=== PATIENT | female | born 1955 | race Caucasian/White ===

== ENCOUNTER → 2016-02-27 | Outpatient (CLI) | payer OTHER ==
[~2016-02-27] MED LIST: ADVAIR 250/501 DISK IH; ADVIL200 MG PO; ALBUTEROL INHALER; AMOXICILLIN875 MG PO; ASMANEX TW200 MICRO1 IH; ASPIR-LOW81 MG PO; Asmanex Twisthaler 1 IH; BENADRYL25 MG PO; BENTYL20 MG PO; CARDIZEM CD,CA180 MG PO; CARDIZEM CD180 MG PO; CIPRO500 MG PO; CLARITIN10 MG PO; DESYREL100 MG PO; ELAVIL10 MG PO; EPIPEN ADU0.3 MG/0.3 IM; ERGOCALCIF50000 UNIT PO; Ecotrin PO; FLONASE16 G1 BOTH NARES; Feosol PO; LEVAQUIN500 MG PO; LEVAQUIN750 MG PO; LEVO-T75 MCG PO; LEVOFLOXACIN750 MG PO; LEVOTHYROXINE100 MCG PO; LO-DOSE ASPIRIN81 M2 PO; Levaquin PO; MONTELUKAST SOD10 MG PO; Medrol Dosepak PO; NAPROSYN500 MG PO; NORCO 5/3251 TABLET PO; PREDNISONE10 MG PO; PREDNISONE20 MG PO; PREDNISONE50 MG PO; PROAIR HFA8.5 GM IH; PROCARDIA20 MG PO; PROVENTIL HFA6.7 GM IH; PROVENTIL,2.5 MG/0.5 IH; PROVENTIL2.5 MG/3 M IH; PriLOSEC PO; Procardia XL,Adalat PO; SINGULAIR10 MG PO; SPIRIVA1 INHALATI IH; SYMBICORT60 INHALA1 IH; SYMBICORT60 INHALAT IH; SYNTHROID50 MCG PO; SYNTHROID75 MCG PO; TAMIFLU75 MG PO; TOPAMAX25 MG PO; TYLENOL REGULA325 MG PO; ULTRACET1 TABLET PO; VENTOLIN HFA18 GM IH; VENTOLIN17 GM IH; XANAX0.5 MG PO; ZITHROMAX Z-PA250 MG PO; ZITHROMAX250 MG PO; Zithromax PO; predniSONE PO
== END | disposition home or self-care (01) ==
LOC: NUC 10:14
DX: I25.9 Chronic ischemic heart disease, unspecified (principal); R07.9 Chest pain, unspecified; R94.31 Abnormal electrocardiogram [ECG] [EKG]
CPT/HCPCS: 78452; 93017; A9500; J2785

== ENCOUNTER 2016-03-06 08:29 | Day surgery (SDC) | payer OTHER ==
[~2016-03-06] VITALS: Ht 147.3 cm; Wt 99.8 kg
[~2016-03-06 08:29] MED LIST changes: +TUMS500 MG PO
== END 2016-03-06 14:30 | disposition home or self-care (01) ==
LOC: CATH 08:29
DX: R94.39 Abnormal result of other cardiovascular function study (principal); R07.2 Precordial pain; R00.2 Palpitations; R06.02 Shortness of breath; E66.01 Morbid (severe) obesity due to excess calories; Z68.42 Body mass index [BMI] 45.0-49.9, adult; K21.9 Gastro-esophageal reflux disease without esophagitis; J45.909 Unspecified asthma, uncomplicated; Z79.82 Long term (current) use of aspirin; Z88.8 Allergy status to other drugs, medicaments and biological substances
CPT/HCPCS: C1769; C1887; J1200; J1644; J2250; J3010; J7050

== ENCOUNTER 2016-03-11 23:20 | Observation (INO) | payer OTHER ==
[~2016-03-11] VITALS: Ht 149.9 cm; Wt 110.0 kg
[2016-03-12 00:25] LABS: HEMATOCRIT 35.4 % (36.0-46.0); MCH 31.1 PG (29.0-34.0); MCHC 33.1 G/DL (30.0-36.0); MCV 94.1 FL (83-99); MEAN PLAT.VOLUME 9.7 uM^3 (9.5-12.4); PLATELET COUNT 214 K/uL (156-360); RBC DIS.WIDTH-CV 17.7 % (11.8-14.6); RBC DIS.WIDTH-SD 58.3 % (39-53); RED BLOOD COUNT 3.76 M/uL (3.80-5.20); WHITE BLOOD COUNT 4.6 K/uL (4.1-10.2)
[2016-03-12 00:29] LABS: CHLORIDE 113 mEq/L (99-109); SODIUM 145 mEq/L (136-147)
[2016-03-12 00:30] LABS: POTASSIUM 3.2 mEq/L (3.7-5.4)
[2016-03-12 00:31] LABS: GLUCOSE 94 mg/dL (70-99)
[2016-03-12 00:33] LABS: ANION GAP 11 MEQ/L (2-14)
[2016-03-12 00:35] LABS: GFR ESTIMATE (CALCULATED) > 59 mL/min/
[2016-03-12 00:36] LABS: UREA NITROGEN (BUN) 13 mg/dL (9-23)
[2016-03-12 00:38] LABS: TROP-I INTERPRETATION NEGATIVE; TROPONIN-I < 0.01 ng/mL (0.0-0.30)
[2016-03-12] MEDS ORDERED: EYE ALLERGY REL15 ML BOTH EYES (01:13)
[2016-03-12] MEDS ORDERED: ALBUTEROL2.5 MG/3 M IH (01:13)
[2016-03-12 05:22] VITALS: BP 136/65
[2016-03-12 05:35] LABS: HDL CHOLESTEROL 38 MG/DL (Desirable>=50); LDL CHOLESTEROL 115 mg/dL (Desirable<100); NON-HDL CHOLESTEROL 140 mg/dL (Desirable<160); TOTAL CHOLESTEROL 178 mg/dL (Desirable<200); TRIGLYCERIDES 127 MG/DL (Normal: <150)
[2016-03-12 06:53] LABS: Estimated Average Glucose 114 mg/dL (70-123); HEMOGLOBIN A1c (GLYCOHEMOGLOB) 5.6 % HGB (Below 5.7)
[2016-03-12 09:30] VITALS: BP 112/57
[2016-03-12 11:21] VITALS: BP 125/61
[2016-03-12 16:16] VITALS: BP 132/69
== END 2016-03-12 18:40 | disposition home or self-care (01) ==
LOC: EME 23:20 → EDOF 03-12 03:23 → 5WEST 03-12 04:38
DX: R20.8 Other disturbances of skin sensation (principal); I10 Essential (primary) hypertension; E87.6 Hypokalemia; E03.9 Hypothyroidism, unspecified; E78.5 Hyperlipidemia, unspecified; J45.909 Unspecified asthma, uncomplicated; D50.9 Iron deficiency anemia, unspecified; K21.9 Gastro-esophageal reflux disease without esophagitis; Z82.0 Family history of epilepsy and other diseases of the nervous system; Z83.3 Family history of diabetes mellitus
CPT/HCPCS: 70450; 70551; 71020; 80048; 80061; 83036; 84443; 84484; 85027; 93005; 94640; 99202; 99281; 99285; G0378

== ENCOUNTER 2016-08-27 07:22 | Emergency (ER) | payer OTHER ==
[~2016-08-27] VITALS: Ht 121.9 cm; Wt 105.0 kg
[~2016-08-27 07:22] MED LIST changes: +ALBUTEROL2.5 MG/3 M IH; +EYE ALLERGY REL15 ML BOTH EYES
[2016-08-27 08:28] LABS: HEMATOCRIT 34.9 % (36.0-46.0); MCH 28.4 PG (29.0-34.0); MCHC 32.1 G/DL (30.0-36.0); MCV 88.4 FL (83-99); MEAN PLAT.VOLUME 9.5 uM^3 (9.5-12.4); PLATELET COUNT 201 K/uL (156-360); RBC DIS.WIDTH-CV 16.6 % (11.8-14.6); RBC DIS.WIDTH-SD 53.9 % (39-53); RED BLOOD COUNT 3.95 M/uL (3.80-5.20); WHITE BLOOD COUNT 4.8 K/uL (4.1-10.2)
[2016-08-27 09:12] LABS: CHLORIDE 112 mEq/L (99-109); POTASSIUM 3.8 mEq/L (3.7-5.4); SODIUM 146 mEq/L (136-147)
[2016-08-27 09:14] LABS: GLUCOSE 101 mg/dL (70-99)
[2016-08-27 09:15] LABS: ANION GAP 10 MEQ/L (2-14)
[2016-08-27 09:17] LABS: GFR ESTIMATE (CALCULATED) > 59 mL/min/
[2016-08-27 09:18] LABS: UREA NITROGEN (BUN) 11 mg/dL (9-23)
[2016-08-27 09:27] LABS: ERTH.SED.RATE 20 MM/HR (0-30)
[2016-08-27] MEDS ORDERED: COMPAZINE10 MG PO (10:08)
[2016-08-27 10:22] VITALS: BP 153/88
== END 2016-08-27 10:48 | disposition home or self-care (01) ==
LOC: EME → EDBD 07:22 → EME 10:48
PROVIDERS: Emergency Medicine
DX: G43.909 Migraine, unspecified, not intractable, without status migrainosus (principal); J44.9 Chronic obstructive pulmonary disease, unspecified; I10 Essential (primary) hypertension; K21.9 Gastro-esophageal reflux disease without esophagitis; Z79.82 Long term (current) use of aspirin
CPT/HCPCS: 80048; 85027; 85651; 86140; 99281; 99285; J0780; J1200; J1885; J7030

== ENCOUNTER 2016-09-28 02:03 | Emergency (ER) | payer OTHER ==
[~2016-09-28] VITALS: Ht 147.3 cm; Wt 102.6 kg
[~2016-09-28 02:03] MED LIST changes: +COMPAZINE10 MG PO
[2016-09-28] MEDS ORDERED: NAPROSYN500 MG PO (03:42)
[2016-09-28] MEDS ORDERED: FLEXERIL10 MG PO (03:42)
[2016-09-28 04:15] VITALS: BP 163/98
== END 2016-09-28 04:15 | disposition home or self-care (01) ==
LOC: EME 02:03
DX: M25.561 Pain in right knee (principal); Z91.81 History of falling; M17.12 Unilateral primary osteoarthritis, left knee; Z79.82 Long term (current) use of aspirin
CPT/HCPCS: 73564; 99281; 99283

== ENCOUNTER 2016-10-26 02:18 | Emergency (ER) | payer OTHER ==
[~2016-10-26] VITALS: Ht 147.3 cm; Wt 107.2 kg
[~2016-10-26 02:18] MED LIST changes: +FLEXERIL10 MG PO
[2016-10-26 03:18] LABS: HEMATOCRIT 36.5 % (36.0-46.0); MCHC 32.9 G/DL (30.0-36.0); MCV 91.3 FL (83-99); MEAN PLAT.VOLUME 9.4 uM^3 (9.5-12.4); PLATELET COUNT 209 K/uL (156-360); RBC DIS.WIDTH-CV 16.3 % (11.8-14.6); RBC DIS.WIDTH-SD 54.3 % (39-53); WHITE BLOOD COUNT 4.6 K/uL (4.1-10.2)
[2016-10-26 03:33] LABS: CHLORIDE 111 mEq/L (99-109); POTASSIUM 3.5 mEq/L (3.7-5.4); SODIUM 145 mEq/L (136-147)
[2016-10-26 03:35] LABS: GLUCOSE 125 mg/dL (70-99)
[2016-10-26 03:36] LABS: ANION GAP 13 MEQ/L (2-14)
[2016-10-26 03:37] LABS: TOTAL BILIRUBIN 0.2 mg/dL (0.0-1.0)
[2016-10-26 03:38] LABS: ALKALINE PHOSPHATASE 125 IU/L (3-129)
[2016-10-26 03:39] LABS: GFR ESTIMATE (CALCULATED) > 59 mL/min/
[2016-10-26 03:40] LABS: UREA NITROGEN (BUN) 13 mg/dL (9-23)
[2016-10-26 03:42] LABS: LIPASE 32 U/L (1.0-51.0)
[2016-10-26 03:47] LABS: TROP-I INTERPRETATION NEGATIVE; TROPONIN-I 0.01 ng/mL (0.0-0.30)
[2016-10-26] MEDS ORDERED: PREDNISONE50 MG PO (04:35)
[2016-10-26 05:52] VITALS: BP 153/82
== END 2016-10-26 05:53 | disposition home or self-care (01) ==
LOC: EME → EDBD 02:18 → EME 02:18
PROVIDERS: Emergency Medicine
DX: J44.1 Chronic obstructive pulmonary disease with (acute) exacerbation (principal); E07.89 Other specified disorders of thyroid; I10 Essential (primary) hypertension; K21.9 Gastro-esophageal reflux disease without esophagitis; E06.3 Autoimmune thyroiditis; Z96.612 Presence of left artificial shoulder joint; Z79.82 Long term (current) use of aspirin
CPT/HCPCS: 71020; 71275; 80053; 83690; 84484; 85027; 85379; 93005; 94640; 94640 76; 99281; 99285; J2930

== ENCOUNTER 2016-11-01 01:58 | Emergency (ER) | payer OTHER ==
[~2016-11-01] VITALS: Ht 147.3 cm; Wt 100.1 kg
[2016-11-01 05:45] LABS: EOSINOPHIL (%) 0.3 % (0-5); HEMATOCRIT 40.5 % (36.0-46.0); IMMATURE GRANULOCYTE (%) 1.1 % (0.0-0.7); IMMATURE GRANULOCYTE COUNT 0.1 K/uL; INSTRUMENT ABS NEUTROPHIL CT 4.7 K/uL; LYMPHOCYTE COUNT 1.8 K/uL (1.0-2.8); MCH 29.9 PG (29.0-34.0); MCHC 33.8 G/DL (30.0-36.0); MCV 88.4 FL (83-99); MEAN PLAT.VOLUME 9.3 uM^3 (9.5-12.4); MONOCYTE COUNT 0.6 K/uL (0-0.8); NEUTROPHIL (%) 65.3 % (45-76); NEUTROPHIL COUNT 4.7 K/uL (1.8-6.4); PLATELET COUNT 258 K/uL (156-360); RBC DIS.WIDTH-CV 15.9 % (11.8-14.6); RBC DIS.WIDTH-SD 51.3 % (39-53); RED BLOOD COUNT 4.58 M/uL (3.80-5.20); WHITE BLOOD COUNT 7.2 K/uL (4.1-10.2)
[2016-11-01 05:56] LABS: CHLORIDE 106 mEq/L (99-109); SODIUM 140 mEq/L (136-147)
[2016-11-01 05:58] LABS: GLUCOSE 95 mg/dL (70-99)
[2016-11-01 06:00] LABS: ANION GAP 15 MEQ/L (2-14)
[2016-11-01 06:02] LABS: GFR ESTIMATE (CALCULATED) > 59 mL/min/
[2016-11-01 06:03] LABS: UREA NITROGEN (BUN) 12 mg/dL (9-23)
[2016-11-01 06:10] LABS: TROP-I INTERPRETATION NEGATIVE; TROPONIN-I < 0.01 ng/mL (0.0-0.30)
[2016-11-01] MEDS ORDERED: LEVAQUIN500 MG PO (07:02)
[2016-11-01 07:33] VITALS: BP 125/72
== END 2016-11-01 07:40 | disposition home or self-care (01) ==
LOC: EME → EDBD 01:58 → EME 01:58
PROVIDERS: Emergency Medicine
DX: J44.0 Chronic obstructive pulmonary disease with (acute) lower respiratory infection (principal); J20.9 Acute bronchitis, unspecified; J44.1 Chronic obstructive pulmonary disease with (acute) exacerbation; E87.6 Hypokalemia; I10 Essential (primary) hypertension; E06.3 Autoimmune thyroiditis; K21.9 Gastro-esophageal reflux disease without esophagitis; Z96.612 Presence of left artificial shoulder joint
CPT/HCPCS: 71020; 80048; 84484; 85025; 93005; 94640; 99281; 99284; J1100

== ENCOUNTER 2016-11-25 19:07 | Emergency (ER) | payer OTHER ==
[~2016-11-25] VITALS: Ht 147.3 cm; Wt 102.2 kg
[2016-11-25 20:04] LABS: HEMATOCRIT 38.4 % (36.0-46.0); MCH 30.4 PG (29.0-34.0); MCHC 32.8 G/DL (30.0-36.0); MEAN PLAT.VOLUME 9.7 uM^3 (9.5-12.4); PLATELET COUNT 262 K/uL (156-360); RBC DIS.WIDTH-CV 16.2 % (11.8-14.6); RBC DIS.WIDTH-SD 55.4 % (39-53); RED BLOOD COUNT 4.14 M/uL (3.80-5.20)
[2016-11-25 20:09] LABS: MCV 92.8 FL (83-99)
[2016-11-25 20:17] LABS: CHLORIDE 109 mEq/L (99-109); POTASSIUM 3.7 mEq/L (3.7-5.4); SODIUM 144 mEq/L (136-147)
[2016-11-25 20:19] LABS: GLUCOSE 105 mg/dL (70-99)
[2016-11-25 20:20] LABS: ANION GAP 13 MEQ/L (2-14)
[2016-11-25 20:21] LABS: TOTAL BILIRUBIN 0.2 mg/dL (0.0-1.0)
[2016-11-25 20:22] LABS: ALKALINE PHOSPHATASE 104 IU/L (3-129)
[2016-11-25 20:23] LABS: GFR ESTIMATE (CALCULATED) > 59 mL/min/
[2016-11-25 20:24] LABS: UREA NITROGEN (BUN) 14 mg/dL (9-23)
[2016-11-25 23:14] LABS: ADD MIUA? YES; BILIRUBIN NEGATIVE; BLOOD SMALL; COLOR STRAW ((YELLOW)); GLUCOSE (STRIP) NEGATIVE; KETONES 5; LEUKOCYTES TRACE; NITRITE NEGATIVE; PROTEIN (STRIP) NEGATIVE; SPECIFIC GRAVITY 1.012 (1.000-1.030); UROBILINOGEN 0.2 MG/DL (0.2-1.0)
[2016-11-25 23:25] LABS: BACTERIA NONE SEEN /HPF; EPITHELIAL CELLS RARE /HPF; MUCUS TRACE /LPF; RED BLOOD CELLS 0-5 /HPF (0-5); UCUL ADDED? NO; WHITE BLOOD CELLS 0-5 /HPF (0-5)
[2016-11-26 00:56] VITALS: BP 169/79
== END 2016-11-26 00:58 | disposition home or self-care (01) ==
LOC: EME 19:07
DX: K92.1 Melena (principal); R10.30 Lower abdominal pain, unspecified; K57.30 Diverticulosis of large intestine without perforation or abscess without bleeding; Z90.49 Acquired absence of other specified parts of digestive tract; I10 Essential (primary) hypertension; J44.9 Chronic obstructive pulmonary disease, unspecified; Z79.82 Long term (current) use of aspirin
CPT/HCPCS: 74177; 80053; 81003; 85027; 99281; 99284; J7030

== ENCOUNTER 2017-05-11 19:25 | Emergency (ER) | payer OTHER ==
[~2017-05-11] VITALS: Ht 147.3 cm; Wt 97.2 kg
[2017-05-11 20:39] LABS: HEMATOCRIT 36.7 % (36.0-46.0); HEMOGLOBIN 12.1 G/DL (11.9-15.5); MCH 31.9 PG (29.0-34.0); MCV 96.8 FL (83-99); PLATELET COUNT 210 K/uL (156-360); RBC DIS.WIDTH-CV 14.1 % (11.8-14.6); RBC DIS.WIDTH-SD 50.1 % (39-53); RED BLOOD COUNT 3.79 M/uL (3.80-5.20); WHITE BLOOD COUNT 5.6 K/uL (4.1-10.2)
[2017-05-11 20:53] LABS: ALBUMIN 4.1 g/dL (3.2-4.8)
[2017-05-11 20:54] LABS: CHLORIDE 111 mEq/L (99-109); POTASSIUM 4.2 mEq/L (3.7-5.4); SODIUM 145 mEq/L (136-147)
[2017-05-11 20:56] LABS: GLUCOSE 146 mg/dL (70-99); TOTAL PROTEIN 6.6 g/dL (6.4-8.3)
[2017-05-11 20:58] LABS: TOTAL BILIRUBIN 0.3 mg/dL (0.0-1.0)
[2017-05-11 20:59] LABS: ALKALINE PHOSPHATASE 107 IU/L (3-129)
[2017-05-11 21:00] LABS: CREATININE 0.8 mg/dL (0.6-1.3); GFR ESTIMATE (CALCULATED) > 59 mL/min/
[2017-05-11 21:01] LABS: AST (GOT) 20 IU/L (2-34); UREA NITROGEN (BUN) 15 mg/dL (9-23)
[2017-05-11 21:03] LABS: ALT (GPT) 17 IU/L (3-49); LIPASE 23 U/L (1.0-51.0)
[2017-05-11 22:20] LABS: APPEARANCE SL.HAZY ((CLEAR)); BILIRUBIN NEGATIVE; BLOOD NEGATIVE; COLOR YELLOW ((YELLOW)); GLUCOSE (STRIP) NEGATIVE; KETONES NEGATIVE; LEUKOCYTES SMALL; NITRITE NEGATIVE; PROTEIN (STRIP) 30; SPECIFIC GRAVITY 1.026 (1.000-1.030)
[2017-05-11] MEDS ORDERED: ANTIVERT25 MG PO (22:22)
[2017-05-11] MEDS ORDERED: ZOFRAN ODT4 MG PO (22:22)
[2017-05-11 22:24] LABS: BACTERIA NONE SEEN /HPF; EPITHELIAL CELLS RARE /HPF; HYALINE CASTS 15-20 /LPF; MUCUS 2+ /LPF
[2017-05-11 22:52] VITALS: BP 128/71
== END 2017-05-11 22:53 | disposition home or self-care (01) ==
LOC: EME → EDBD 19:25 → EME 19:25
PROVIDERS: Nurse Practitioner Family
DX: R42 Dizziness and giddiness (principal); R11.2 Nausea with vomiting, unspecified; R94.31 Abnormal electrocardiogram [ECG] [EKG]; I10 Essential (primary) hypertension; J44.9 Chronic obstructive pulmonary disease, unspecified; K21.9 Gastro-esophageal reflux disease without esophagitis; E06.3 Autoimmune thyroiditis; F41.9 Anxiety disorder, unspecified; F32.9 Major depressive disorder, single episode, unspecified; Z86.73 Personal history of transient ischemic attack (TIA), and cerebral infarction without residual deficits; Z90.49 Acquired absence of other specified parts of digestive tract; Z96.612 Presence of left artificial shoulder joint; Z79.51 Long term (current) use of inhaled steroids; Z79.82 Long term (current) use of aspirin
CPT/HCPCS: 80053; 81003; 83690; 85027; 93005; 99281; 99285; J2405; J7030

== ENCOUNTER 2017-09-03 23:07 | Emergency (ER) | payer OTHER ==
[~2017-09-03] VITALS: Ht 147.3 cm; Wt 96.4 kg
[~2017-09-03 23:07] MED LIST changes: +ANTIVERT25 MG PO; +ZOFRAN ODT4 MG PO
[2017-09-04 02:02] VITALS: BP 127/53
== END 2017-09-04 02:03 | disposition home or self-care (01) ==
LOC: EME → EDBD 23:07 → EME 23:07
DX: J02.9 Acute pharyngitis, unspecified (principal); J45.909 Unspecified asthma, uncomplicated; I10 Essential (primary) hypertension; F32.9 Major depressive disorder, single episode, unspecified; F41.9 Anxiety disorder, unspecified; J43.9 Emphysema, unspecified; K21.9 Gastro-esophageal reflux disease without esophagitis; E06.3 Autoimmune thyroiditis; Z96.612 Presence of left artificial shoulder joint; Z79.82 Long term (current) use of aspirin
CPT/HCPCS: 87651 90; 99281; 99283